=== PATIENT | male | born 1995 | race Caucasian/White ===

== ENCOUNTER 2024-01-06 18:05 | Inpatient (IN) | payer MEDICAID, OTHER ==
[~2024-01-06] VITALS: Ht 172.7 cm; Wt 111.7 kg
[2024-01-07 01:13] LABS: COVID AG,FIA SOURCE NASAL SWAB
[2024-01-07 01:27] LABS: SARS-COV2 (COVID) ANTIGEN,FIA Negative (Negative)
[2024-01-07] MEDS: HALOPERIDOL 5 MG TABLET PO PRN (05:13)
[2024-01-07] MEDS: LORazepam 2 MG TABLET PO PRN (05:13)
[2024-01-07] MEDS ORDERED: ONDANSETRON HCL 4 MG TABLET PO PRN (06:30)
[2024-01-07] MEDS ORDERED: IBUPROFEN 400 MG TABLET PO PRN (06:30)
[2024-01-07] MEDS ORDERED: LOPERAMIDE HCL 2 MG CAPSULE PO PRN (06:30)
[2024-01-07] MEDS ORDERED: ACETAMINOPHEN 325 MG TABLET PO PRN (06:30)
[2024-01-07] MEDS ORDERED: MAGNESIUM HYDROXIDE SUSPENSION 30 ML UDCUP PO PRN (06:30)
[2024-01-07] MEDS ORDERED: CloNIDine HCL 0.1 MG TABLET PO PRN (06:30)
[2024-01-07] MEDS ORDERED: DOCUSATE SODIUM 100 MG CAPSULE PO PRN (06:30)
[2024-01-07] MEDS ORDERED: ALBUTEROL SULFATE HFA 90 MCG/PUFF 8 GM INHALER IH PRN (06:30)
[2024-01-07] MEDS ORDERED: NICOTINE 14 MG/24 HOUR PATCH TD PRN (06:30)
[2024-01-07] MEDS ORDERED: PETROLATUM,WHITE 28 GM JELLY TP PRN (06:30)
[2024-01-07] MEDS ORDERED: MAG HYDROX/ALUMINUM HYD/SIMETH ES 30 ML SUSPENSION UDCUP PO PRN (06:30)
[2024-01-07] MEDS ORDERED: GuaiFENesin/D-METHORPHAN [SUGAR-FREE] 200-20MG/10 ML SYRUP UDCUP PO PRN (06:30)
[2024-01-07] MEDS: MetFORMIN HCL 500 MG TABLET PO SCH (06:38)
[2024-01-07 06:42] VITALS: BP 130/72; PULSE 82; RESP 18; TEMP 98; O2SAT 98
[2024-01-07] MEDS: ESCITALOPRAM OXALATE 10 MG TABLET PO SCH (09:30)
[2024-01-07 10:03] VITALS: BP 134/79; PULSE 90; RESP 18; TEMP 97; O2SAT 96
[2024-01-07 23:06] VITALS: BP 134/70; PULSE 97; RESP 18; TEMP 97.3; O2SAT 97
[2024-01-08 07:34] LABS: EOSINOPHILS % (AUTO) 3.4 % (1.0-6.0); HEMATOCRIT 45.5 % (41-53); HEMOGLOBIN 15.5 g/dL (13.5-17.5); LYMPHOCYTES # (AUTO) 3.2 K/uL (1.0-4.8); LYMPHOCYTES % (AUTO) 31.6 % (22.0-44.0); MEAN CORPUSCULAR HEMOGLOBIN 28.1 pg (26.0-34.0); MEAN CORPUSCULAR VOLUME 83 fL (80-100); MONOCYTES # (AUTO) 0.7 K/uL (0.1-1.0); MONOCYTES % (AUTO) 7.2 % (2.0-9.0); NEUTROPHILS # (AUTO) 5.7 K/uL (1.8-7.7); NEUTROPHILS % (AUTO) 56.8 % (40.0-70.0); PLATELET COUNT (AUTO) 241 K/uL (150-450); RED BLOOD CELL COUNT(AUTO) 5.51 MIL/uL (4.50-5.90); RED CELL DISTRIBUTION WIDTH 13.8 % (11.5-14.5)
[2024-01-08 07:56] LABS: HEMOGLOBIN A1C 10.6 % (3.8-5.6)
[2024-01-08 08:58] LABS: ALANINE AMINOTRANSFERASE 95 U/L (12-78); ALBUMIN 3.4 g/dL (3.4-5.0); ALKALINE PHOSPHATASE 102 U/L (46-116); ANION GAP 12 mmol/L (8-16); ASPARTATE AMINOTRANSFERASE 36 U/L (15-37); BILIRUBIN,TOTAL 0.5 mg/dL (0.1-1.0); CALCIUM, TOTAL 8.4 mg/dL (8.8-10.5); CARBON DIOXIDE 27 mmol/L (22-29); CHLORIDE 99 mmol/L (98-107); CHOL/HDL RATIO 5.3 (4.2-7.3); CHOLESTEROL 169 mg/dL (131-200); CREATININE 0.64 mg/dL (0.60-1.30); GLOMERULAR FILTR. RATE CALC > 60 mL/min (>60); GLUCOSE,RANDOM 210 mg/dL (70-110); HDL CHOLESTEROL 32 mg/dL (40-60); LDL CHOL (CALC.) 107 mg/dL (0-130); POTASSIUM 4.2 mmol/L (3.5-5.1); SODIUM SERUM 138 mmol/L (136-145); THYROID STIMULATING HORMONE 0.74 uIU/mL (0.36-3.74); TOTAL PROTEIN, SERUM 7.2 g/dL (6.4-8.2); TRIGLYCERIDES 152 mg/dL (15-150); UREA NITROGEN, BLOOD 7 mg/dL (7-18)
[2024-01-08 08:59] VITALS: BP 121/86; PULSE 86; RESP 17; TEMP 97.9; O2SAT 97
[2024-01-08] MEDS: ZOLPIDEM TARTRATE 10 MG TABLET PO PRN (21:39)
[2024-01-08 22:21] VITALS: BP 142/81; PULSE 93; RESP 18; TEMP 97.8; O2SAT 96
[2024-01-09 08:58] VITALS: BP 142/77; PULSE 97; RESP 18; TEMP 97.9; O2SAT 98
[2024-01-09] MEDS ORDERED: METF-1211 PO ×2 (13:04→13:29)
[2024-01-09] MEDS ORDERED: ESCI-8 PO ×2 (13:04→13:29)
== END 2024-01-09 14:00 | disposition home or self-care (01) | DRG 751 ==
LOC: EMS 18:14 → 3EI 01-07 00:20
PROVIDERS: ADMIT Psychiatry & Neurology Child & Adolescent Psychiatry; ATTEND Psychiatry & Neurology Child & Adolescent Psychiatry
PROC: GZ51ZZZ Individual Psychotherapy, Behavioral (ICD-10-PCS; principal; 2024-01-08)
DX: F32.2 Major depressive disorder, single episode, severe without psychotic features (principal); E10.9 Type 1 diabetes mellitus without complications; R45.851 Suicidal ideations; E66.3 Overweight; E78.5 Hyperlipidemia, unspecified; Z20.822 Contact with and (suspected) exposure to COVID-19; F43.10 Post-traumatic stress disorder, unspecified; Z79.4 Long term (current) use of insulin
CPT/HCPCS: 80053; 80061; 83036; 84443; 85025; 99285